=== PATIENT | male | born 1970 | race Caucasian/White ===

== ENCOUNTER → 2021-08-30 09:47 | Outpatient (BNVA) | payer MEDICARE, SELFPAY | PROVIDERS: Family Provider Internal Medicine; PCP Internal Medicine; Visit Provider Internal Medicine Pulmonary Disease | DX: J44.9 Chronic obstructive pulmonary disease, unspecified (principal); Z95.2 Presence of prosthetic heart valve; Q21.3 Tetralogy of Fallot; I37.0 Nonrheumatic pulmonary valve stenosis; G47.33 Obstructive sleep apnea (adult) (pediatric); R06.02 Shortness of breath; I50.32 Chronic diastolic (congestive) heart failure; I10 Essential (primary) hypertension | CPT/HCPCS: 82785; 85025; 86003; 99214 ==

== ENCOUNTER → 2021-10-04 13:52 | Outpatient (BNVA) | payer MEDICARE, SELFPAY | PROVIDERS: Family Provider Internal Medicine; PCP Internal Medicine; Visit Provider Internal Medicine Cardiovascular Disease | DX: Q21.3 Tetralogy of Fallot (principal); I11.0 Hypertensive heart disease with heart failure; I50.32 Chronic diastolic (congestive) heart failure; Z95.2 Presence of prosthetic heart valve; G47.33 Obstructive sleep apnea (adult) (pediatric) | CPT/HCPCS: 99214 ==

== ENCOUNTER 2021-11-12 14:24 | Outpatient (CLI) | payer MEDICARE, SELFPAY ==
--- NOTE | 2021-11-12 14:30 | USCV_ITS ---
Garo Marroquin Age: 51 Gender: M : 1970 Exam Date: 11/12/2021 14:46 Ordering Phys: Michelle Warner MD ([email or web address]) Technologist: Dayana Hill Exam Location: [facility] – [place] Indication: TOF, AOV replacement X2 BP: 120 / 70 HR: 69 Rhythm: Sinus Technical Quality: Adequate MEASUREMENTS (Male / Female) Normal Values 2D ECHO LV Diastolic Diameter PLAX 5.3 cm 4.2 - 5.9 / 3.9 - 5.3 cm LV Systolic Diameter PLAX 4.0 cm IVS Diastolic Thickness 2.0 cm 0.6 - 1.0 / 0.6 - 0.9 cm IVS Systolic Thickness 1.5 cm LVPW Diastolic Thickness 0.9 cm 0.6 - 1.0 / 0.6 - 0.9 cm LVPW Systolic Thickness 1.3 cm LVOT Diameter 2.1 cm LV Ejection Fraction 2D Teich 50.9 % LV Ejection Fraction MOD 2C 69.9 % LV Ejection Fraction 2C AL 69.2 % LA Diameter 4.3 cm LA Width 4.3 cm LA Height 5.0 cm RA Width 4.4 cm RA Height 5.4 cm Aorta at Sinotubular Diameter 2.6 cm IVC Diameter 1.7 cm DOPPLER AV Peak Velocity 292.8 cm/s LVOT Peak Velocity 89.0 cm/s AV Area Cont Eq vti 0.9 cm squared AV Area Cont Eq pk 1.0 cm squared MV Peak Velocity 125.0 cm/s MV Area PHT 4.4 cm squared Mitral E to A Ratio 3.7 MV E' Velocity 57.5 cm/s Mitral E to MV E' Ratio 11.5 Mitral E to LV E' Lateral Ratio 9.6 Mitral E to LV E' Septal Ratio 14.4 TR Peak Velocity 393.0 cm/s TR Peak Gradient 61.8 mmHg Right Atrial Pressure 3.0 mmHg Pulmonary Artery Systolic Pressu 64.8 mmHg PV Peak Velocity 104.0 cm/s RV Acceleration Time 0.1 s RV Ejection Time 0.3 s RV AcT/ET 0.4 FINDINGS Left Ventricle Normal left ventricular cavity size, mildly increased and systolic function. Left ventricular ejection fraction is estimated at 60 %. No diagnostic regional wall motion abnormalities. Abnormal diastolic function. Abnormal (paradoxical) septal motion consistent with postoperative status. Flattened septum in systole consistent with right ventricle pressure overload. Right Ventricle Upper normal right ventricular size probably with mildly decreased right ventricle systolic function. Right ventricular systolic pressure 64.8 mmHg. Right Atrium Mildly increased right atrial size. Left Atrium Mildly increased left atrial size. Mitral Valve Structurally normal mitral valve. No mitral valve stenosis. Trace mitral valve regurgitation. Aortic Valve Bioprosthetic aortic valve. 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 DVI= 0.25. NF=319 msec. No significant valvular or perivalvular aortic valve regurgitation. Tricuspid Valve Structurally normal tricuspid valve. No tricuspid valve regurgitation. Pulmonic Valve Pulmonic valve not well visualized. Status post pulmonary valve stenosis repair. No pulmonary valve stenosis. No significant pulmonary valve regurgitation. Pericardium No pericardial effusion. Aorta Normal size aortic root and proximal ascending aorta. IVC Normal IVC dimension with >50% respiratory change of the inferior vena cava. CONCLUSIONS 1. Normal left ventricular cavity size, mildly increased and systolic function. Left ventricular ejection fraction is estimated at 60 %. No diagnostic regional wall motion abnormalities. Abnormal diastolic function. 2. Upper normal right ventricular size probably with mildly decreased right ventricle systolic function. 3. Bioprosthetic aortic valve. 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 DVI= 0.25. TS=833 msec. 4. Severe pulmonary hypertension with pulmonary pressure estimated at 65 mmHg. 5. No recent studies to compare. Michelle Warner MD (Electronically Signed) Final Date: 19 November 2021 17:44 S
== END 2021-11-12 14:25 | disposition home or self-care (01) ==
LOC: RAD 14:25
PROVIDERS: Family Provider Internal Medicine; PCP Internal Medicine; Visit Provider Internal Medicine Cardiovascular Disease
DX: Q21.3 Tetralogy of Fallot (principal); Z95.2 Presence of prosthetic heart valve; I27.20 Pulmonary hypertension, unspecified
CPT/HCPCS: 93306

== ENCOUNTER → 2022-02-19 13:46 | Outpatient (BNVA) | payer MEDICARE, SELFPAY | PROVIDERS: Family Provider Internal Medicine; PCP Internal Medicine; Visit Provider Internal Medicine Pulmonary Disease | DX: G47.33 Obstructive sleep apnea (adult) (pediatric) (principal); J44.9 Chronic obstructive pulmonary disease, unspecified; Z95.2 Presence of prosthetic heart valve; Q21.3 Tetralogy of Fallot; I50.32 Chronic diastolic (congestive) heart failure; I37.0 Nonrheumatic pulmonary valve stenosis | CPT/HCPCS: 99213; 99214 ==

== ENCOUNTER → 2022-04-04 13:21 | Outpatient (BNVA) | payer MEDICARE, SELFPAY | PROVIDERS: Family Provider Internal Medicine; PCP Internal Medicine; Visit Provider Internal Medicine Cardiovascular Disease | DX: Q21.3 Tetralogy of Fallot (principal); Z95.2 Presence of prosthetic heart valve; I11.0 Hypertensive heart disease with heart failure; I50.32 Chronic diastolic (congestive) heart failure; G47.33 Obstructive sleep apnea (adult) (pediatric) | CPT/HCPCS: 99214; Q3014 ==

== ENCOUNTER 2022-04-11 14:11 | Outpatient (CLI) | payer MEDICARE, SELFPAY ==
[2022-04-11 14:54] LABS: Basophils # 0.1 10^3/uL (0.0-0.1); Basophils % 0.7 %; Eosinophils # 0.2 10^3/uL (0.0-0.8); Eosinophils % 2.6 %; Hematocrit 44.5 % (42.0-52.0); Hemoglobin 15.1 g/dL (11.7-16.6); Lymphocytes # 2.4 10^3/uL (0.8-4.8); Lymphocytes % 35.1 %; Mean Corpuscular HGB Conc 33.9 g/dL (30.0-36.0); Mean Corpuscular Hemoglobin 29.8 pg (28.0-34.0); Mean Corpuscular Volume 87.8 fl (80-94); Mean Platelet Volume 11.2 fL (7.4-10.4); Monocytes # 0.5 10^3/uL (0.2-0.9); Monocytes % 7.5 %; Neutrophils # 3.67 10^3/uL (1.8-7.7); Nucleated Red Blood Cells % 0 %; Platelet Count 164 10^3/cmm (130-400); Red Blood Count 5.07 10^6/uL (4.1-5.3); Red Cell Distribution Width 12.4 % (12.1-15.1); White Blood Count 6.8 10^3/uL (4.0-10.0)
[2022-04-11 15:23] LABS: Albumin Level 4.7 g/dL (3.5-5.2); Alkaline Phosphatase 65 U/L (40-130); Blood Urea Nitrogen 19 mg/dL (6-20); Calcium 9.6 mg/dL (8.5-10.5); Carbon Dioxide 28 mmol/L (22-29); Chloride 98 mmol/L (98-107); Globulin 3.2 g/dL (1.3-4.6); Glomerular Filtration Rate 89.3 mL/min (90-130); Glucose 123 mg/dL (65-115); Magnesium 1.9 mg/dL (1.7-2.3); NT Pro B Type Natriuretic Pept 164 pg/mL (0-125); Osmolality Calculated 286 mOsm/kg (285-295); Sodium 136 mmol/L (136-145); Total Bilirubin 0.6 mg/dL (0.15-1.2); Total Protein 7.9 g/dL (6.6-8.7)
[2022-04-11 15:24] LABS: Anion Gap 14.1 (5-19); Potassium 4.1 mmol/L (3.5-5.1)
[2022-04-11 15:34] LABS: Alanine Aminotransferase < 5 U/L (0-41); Aspartate Amino Transferase 5 U/L (0-40)
== END 2022-04-11 14:12 | disposition home or self-care (01) ==
PROVIDERS: PCP Internal Medicine; Visit Provider Internal Medicine Cardiovascular Disease
DX: I11.0 Hypertensive heart disease with heart failure (principal); I50.32 Chronic diastolic (congestive) heart failure; Q21.3 Tetralogy of Fallot; Z95.2 Presence of prosthetic heart valve
CPT/HCPCS: 36415; 80053; 83735; 83880; 85025

== ENCOUNTER → 2022-08-29 10:36 | Outpatient (BNVA) | payer MEDICARE, SELFPAY | PROVIDERS: PCP Internal Medicine; Visit Provider Internal Medicine Pulmonary Disease | DX: J45.909 Unspecified asthma, uncomplicated (principal); Z95.2 Presence of prosthetic heart valve; Q21.3 Tetralogy of Fallot; I50.32 Chronic diastolic (congestive) heart failure; I37.0 Nonrheumatic pulmonary valve stenosis; G47.33 Obstructive sleep apnea (adult) (pediatric); I27.20 Pulmonary hypertension, unspecified | CPT/HCPCS: 99214 ==

== ENCOUNTER 2022-09-17 09:21 | Outpatient (CLI) | payer MEDICARE, SELFPAY ==
[2022-09-17 10:25] LABS: Bilirubin Urine Neg (Negative); Blood Urine Neg (Negative); Glucose Urine UA Norm (Normal); Ketones Urine Negative (Negative); Leukocyte Esterase Urine Negative (Negative); Nitrate Urine Negative (Negative); Protein Urine Neg (Negative); RBC Urine RARE /hpf (0-2); Specific Gravity, Urine 1.005 (1.005-1.030); Urine Appearance Clear (CLEAR); Urine Color Yellow (Yellow); Urobilinogen Urine Norm (Negative); WBC Urine RARE /hpf (0-5); pH Urine 5 (5-7)
[2022-09-17 10:25] LABS: Basophils % 0.7 %; Eosinophils # 0.2 10^3/uL (0.0-0.8); Eosinophils % 3.3 %; Hematocrit 41.3 % (42.0-52.0); Hemoglobin 13.3 g/dL (11.7-16.6); Lymphocytes # 2.2 10^3/uL (0.8-4.8); Lymphocytes % 36.3 %; Mean Corpuscular HGB Conc 32.2 g/dL (30.0-36.0); Mean Corpuscular Hemoglobin 28.7 pg (28.0-34.0); Mean Corpuscular Volume 89.2 fl (80-94); Mean Platelet Volume 10.9 fL (7.4-10.4); Monocytes # 0.5 10^3/uL (0.2-0.9); Monocytes % 8.2 %; Neutrophils # 3.09 10^3/uL (1.8-7.7); Neutrophils % 51.3 %; Nucleated Red Blood Cells % 0 %; Platelet Count 132 10^3/cmm (130-400); Red Blood Count 4.63 10^6/uL (4.1-5.3); Red Cell Distribution Width 12.7 % (12.1-15.1)
[2022-09-17 10:54] LABS: Anion Gap 14.2 (5-19); Blood Urea Nitrogen 19 mg/dL (6-20); Calcium 9.5 mg/dL (8.5-10.5); Carbon Dioxide 25 mmol/L (22-29); Chloride 104 mmol/L (98-107); Glomerular Filtration Rate 79.1 mL/min (90-130); Glucose 112 mg/dL (65-115); Osmolality Calculated 291 mOsm/kg (285-295); Potassium 4.2 mmol/L (3.5-5.1); Sodium 139 mmol/L (136-145)
== END 2022-09-17 09:22 | disposition home or self-care (01) ==
LOC: LAB 09:25
PROVIDERS: PCP Internal Medicine; Visit Provider Internal Medicine Cardiovascular Disease
DX: Z01.812 Encounter for preprocedural laboratory examination (principal)
CPT/HCPCS: 36415; 80048; 81001; 85025

== ENCOUNTER 2022-11-14 15:36 | Outpatient (CLI) | payer MEDICARE, SELFPAY ==
[2022-11-14 17:42] LABS: Anion Gap 15.7 (5-19); Blood Urea Nitrogen 17 mg/dL (6-20); Carbon Dioxide 23 mmol/L (22-29); Chloride 106 mmol/L (98-107); Glomerular Filtration Rate 89.3 mL/min (90-130); Glucose 109 mg/dL (65-115); Osmolality Calculated 292 mOsm/kg (285-295); Potassium 4.7 mmol/L (3.5-5.1); Sodium 140 mmol/L (136-145)
== END 2022-11-14 15:37 | disposition home or self-care (01) ==
PROVIDERS: PCP Internal Medicine; Visit Provider Internal Medicine Cardiovascular Disease
DX: Z79.899 Other long term (current) drug therapy (principal)
CPT/HCPCS: 36415; 80048

== ENCOUNTER → 2023-01-02 14:00 | Outpatient (BNVA) | payer MEDICARE, SELFPAY | PROVIDERS: PCP Internal Medicine; Visit Provider Internal Medicine Cardiovascular Disease | DX: Q21.3 Tetralogy of Fallot (principal); Z95.2 Presence of prosthetic heart valve; I11.0 Hypertensive heart disease with heart failure; I50.32 Chronic diastolic (congestive) heart failure; G47.33 Obstructive sleep apnea (adult) (pediatric); Z99.89 Dependence on other enabling machines and devices | CPT/HCPCS: 99214 ==

== ENCOUNTER → 2023-05-29 14:02 | Outpatient (BNVA) | payer MEDICARE, SELFPAY | PROVIDERS: PCP Internal Medicine; Visit Provider Internal Medicine Pulmonary Disease | DX: G47.33 Obstructive sleep apnea (adult) (pediatric) (principal); J45.909 Unspecified asthma, uncomplicated; Z95.2 Presence of prosthetic heart valve; Q21.3 Tetralogy of Fallot; I50.32 Chronic diastolic (congestive) heart failure; I37.0 Nonrheumatic pulmonary valve stenosis | CPT/HCPCS: 99214 ==

== ENCOUNTER → 2023-08-10 11:40 | Outpatient (BNVA) | payer MEDICARE, SELFPAY | PROVIDERS: PCP Internal Medicine; Visit Provider Emergency Medicine | DX: R39.9 Unspecified symptoms and signs involving the genitourinary system (principal) | CPT/HCPCS: 81000; 87086 ==

== ENCOUNTER 2023-08-11 13:43 | Outpatient (CLI) | payer MEDICARE, SELFPAY ==
[2023-08-11 14:24] LABS: Anion Gap 15.5 (5-19); Blood Urea Nitrogen 15 mg/dL (6-20); Carbon Dioxide 24 mmol/L (22-29); Chloride 104 mmol/L (98-107); Glomerular Filtration Rate 78.8 mL/min (90-130); Glucose 127 mg/dL (65-115); Osmolality Calculated 290 mOsm/kg (285-295); Potassium 4.5 mmol/L (3.5-5.1); Sodium 139 mmol/L (136-145)
== END 2023-08-11 13:44 | disposition home or self-care (01) ==
LOC: LAB 13:44
PROVIDERS: PCP Internal Medicine
DX: I35.1 Nonrheumatic aortic (valve) insufficiency (principal)
CPT/HCPCS: 36415; 80048